=== PATIENT | female | born 1990 | race Caucasian/White ===

== ENCOUNTER 2017-06-29 08:29 | Emergency (ER) | payer BC ==
[2017-06-29] MEDS ORDERED: METHYLPREDNISOLONE PF 125MG/VIAL IVP ONE (09:03)
[2017-06-29] MEDS ORDERED: DIPHENHYDRAMINE HCL IV 50 MG/ML VIAL IVP ONE (09:03)
[2017-06-29 09:29] LABS: URINE APPEARANCE SL CLOUDY; URINE BILIRUBIN NEGATIVE (NEGATIVE); URINE BLOOD MODERATE (NEGATIVE); URINE COLOR YELLOW; URINE GLUCOSE (UA) NEGATIVE (NEGATIVE); URINE KETONE NEGATIVE (NEGATIVE); URINE LEUKOCYTE ESTERASE TRACE (NEGATIVE); URINE NITRITE NEGATIVE (NEGATIVE); URINE PROTEIN NEGATIVE (NEGATIVE); URINE UROBILINOGEN 0.2 E.U./dL (0.20 - 1.00)
[2017-06-29 09:30] LABS: BASO % 0.2 % (0-6); EOS % 0.6 % (0-6); HEMATOCRIT 41.3 % (35.0-47.0); LYMPH % 16.8 % (16-45); MEAN CELL VOLUME 86.9 fl (81-97); MEAN CORPUSCULAR HEMOGLOBIN 29.5 pg (27-33); MEAN CORPUSCULAR HGB CONC 33.9 g/dl (32-36); MEAN PLATELET VOLUME 10.3 fl (7.4-10.4); MONO % 6.4 % (0-9); PLATELET COUNT 297 K/uL (130-400); RED BLOOD COUNT 4.75 M/uL (3.80-5.40); RED CELL DISTRIBUTION WIDTH 12.8 % (11.5-14.5); WHITE BLOOD COUNT W/O DIFF 12.5 K/uL (4.2-12.2)
[2017-06-29 09:45] LABS: URINE BACTERIA 2+; URINE SQUAMOUS EPITHELIAL CELL 16 - 20 /hpf
[2017-06-29 10:05] LABS: ALB/GLOB RATIO 1.4 (1.1-1.8); ALBUMIN 4.1 g/dL (4.0-5.0); ALKALINE PHOSPHATASE 58 U/L (35-104); ALT/SGPT 9 U/L (<33); AST/SGOT 13 U/L (10.0-35.0); BLOOD UREA NITROGEN 10 mg/dL (6-20); CREATININE 0.5 mg/dL (0.5-0.9); EST GLOMERULAR FILTRATION RATE > 60 mL/min; GLUCOSE,RANDOM 86 mg/dL (74-109); TOTAL PROTEIN 7.1 g/dL (6.6-8.7)
[2017-06-29 10:37] LABS: ERYTHROCYTE SEDIMENTATION RATE 2 mm/hr (0-20)
--- NOTE | 2017-06-29 11:16 | Emergency Department Record ---
History of Present Illness - General Chief complaint: Allergic Reaction Stated complaint: HANDS SWOLLEN,HIVES Time Seen by Provider: 06/29/17 08:51 Source: Patient Mode of Arrival: Ambulatory Limitations: No limitations - History of Present Illness Initial Comments: pt awakened w swelling in her face and hands and forearms w itching. she also has a rash along the panty line that is itchy. no flory or swallowing. pt is 7 wks Complaint: Allergic reaction, Facial swelling Onset/Timin -: Week(s) Exposure: Unknown Symptoms: Itching, Rash Previous Allergy History: None - Related Data Previous Rx's Medication Instructions Recorded Cephalexin [Keflex] 500 mg PO BID #14 cap 06/29/17 Allergies Allergy/AdvReac Type Severity Reaction Status Date / Time No Known Drug Allergies Allergy Verified 06/29/17 08:42 Travel Screening - Travel/Exposure Within Last 30 Days Have you traveled within the last 30 days?: No Review of Systems Reviewed: No additional complaints except as noted below Constitutional: Reports: As per HPI. Denies: Chills, Fever, Malaise, Night sweats, Weakness, Weight change Eyes: Reports: As per HPI. Denies: Eye discharge, Eye pain, Photophobia, Vision change ENT: Reports: As per HPI. Denies: Congestion, Dental pain, Ear pain, Epistaxis , Hearing loss, Throat pain Respiratory: Reports: As per HPI. Denies: Cough, Dyspnea, Hemoptysis, Stridor, Wheezes Cardiovascular: Reports: As per HPI. Denies: Arrhythmia, Chest pain, Dyspnea on exertion, Edema, Murmurs, Orthopnea, Palpitations, Paroxysmal nocturnal dyspnea, Rheumatic Fever, Syncope Endocrine: Reports: As per HPI. Denies: Fatigue, Heat or cold intolerance, Polydipsia, Polyuria Gastrointestinal: Reports: As per HPI. Denies: Abdominal pain, Constipation, Diarrhea, Hematemesis, Hematochezia, Melena, Nausea, Vomiting Genitourinary: Reports: As per HPI. Denies: Abnormal menses, Discharge, Dyspareunia, Dysuria, Frequency, Hematuria, Incontinence, Retention, Urgency Musculoskeletal: Reports: As per HPI. Denies: Arthralgia, Back pain, Gout, Joint swelling, Myalgia, Neck pain Skin: Reports: As per HPI. Denies: Bruising, Change in color, Change in hair/ nails, Lesions, Pruritus, Rash Neurological: Reports: As per HPI. Denies: Abnormal gait, Confusion, Headache, Numbness, Paresthesias, Seizure, Tingling, Tremors, Vertigo, Weakness Psychiatric: Reports: As per HPI. Denies: Anxiety, Auditory hallucinations, Depression, Homicidal thoughts, Suicidal thoughts, Visual hallucinations Hematological/Lymphatic: Reports: As per HPI. Denies: Anemia, Blood Clots, Easy bleeding, Easy bruising, Swollen glands Past Medical History - SOCIAL HISTORY Smoking Status: Never smoker Alcohol Use: None Drug Use: None - RESPIRATORY Hx Respiratory Disorders: No - CARDIOVASCULAR Hx Cardio Disorders: No - NEURO Hx Neuro Disorders: No - GI Hx GI Disorders: No - Hx Genitourinary Disorders: Yes Hx Kidney Stones: Yes - ENDOCRINE Hx Endocrine Disorders: No - MUSCULOSKELETAL Hx Musculoskeletal Disorders: No - PSYCH Hx Psych Problems: No - HEMATOLOGY/ONCOLOGY Hx Hematology/Oncology Disorders: No Family Medical History Any Significant Family History?: No Family Hx Comment (NOT TO BE USED IN PLACE OF ITEMS BELOW): denies Physical Exam - General General Appearance: Alert, Oriented x3, Cooperative, Mild distress - Head Head exam: Normal inspection Head exam detail: Other (swelling of face, lids, lips w erythema) - Eye Eye exam: Normal appearance, PERRL, EOMI Pupils: Normal accommodation - ENT ENT exam: Normal exam, Mucous membranes moist, Normal external ear exam, Normal orophraynx Ear exam: Normal external inspection. negative: External canal tenderness Nasal Exam: Normal inspection. negative: Discharge, Sinus tenderness Mouth exam: Tongue normal, Other (swelling of lips) Teeth exam: Normal inspection. negative: Dental caries Throat exam: Normal inspection. negative: Tonsillar erythema, Tonsillar exudate - Neck Neck exam: Normal inspection, Full ROM. negative: Tenderness - Respiratory Respiratory exam: Normal lung sounds bilaterally. negative: Respiratory distress - Cardiovascular Cardiovascular Exam: Regular rate, Normal rhythm, Normal heart sounds - GI/Abdominal GI/Abdominal exam: Soft, Normal bowel sounds. negative: Tenderness - Rectal Rectal exam: Deferred - exam: Deferred - Extremities Extremities exam: Joint swelling (swelling of hands), Normal capillary refill, Tenderness. negative: Full ROM - Back Back exam: Reports: Normal inspection, Full ROM. Denies: Muscle spasm, Rash noted, Tenderness - Neurological Neurological exam: Alert, CN II-XII intact, Normal gait, Oriented X3 - Psychiatric Psychiatric exam: Normal affect, Normal mood - Skin Skin exam: Dry, Intact, Normal color, Rash, Warm Distribution of rash: Abdomen Description of rash: Confluent, Erythematous, Macular, Papular Course Vital Signs 06/29/17 06/29/17 08:36 11:02 Temperature 98.0 F 98.2 F Pulse Rate 84 Pulse Rate [ 79 Pulse Ox Probe] Respiratory 20 20 Rate Blood Pressure 123/76 Blood Pressure 100/55 [Left Arm] Pulse Ox 97 97 - Reevaluation(s) Reevaluation #1: 06/29/17 11:17 pt feels much better and swelling is going down Medical Decision Making - Lab Data Result diagrams: 06/29/17 09:20 06/29/17 09:20 Lab Results 06/29/17 06/29/17 06/29/17 Range/Units 09:20 09:20 09:20 WBC 12.5 H (4.2-12.2) K/uL RBC 4.75 (3.80-5.40) M/uL Hgb 14.0 (11.6-16.0) gm/dl Hct 41.3 (35.0-47.0) % MCV 86.9 (81-97) fl MCH 29.5 (27-33) pg MCHC 33.9 (32-36) g/dl RDW 12.8 (11.5-14.5) % Plt Count 297 (130-400) K/uL MPV 10.3 (7.4-10.4) fl Gran % 76.0 (47-80) % Lymphocytes % 16.8 (16-45) % Monocytes % 6.4 (0-9) % Eosinophils % 0.6 (0-6) % Basophils % 0.2 (0-6) % ESR 2 (0-20) mm/hr Sodium 138 (136-145) mmol/L Potassium 3.9 (3.4-4.5) mmol/L Chloride 100 (98-107) mmol/L Carbon Dioxide 24.0 (22-29) mmol/L Anion Gap 14.0 (7-16) BUN 10 (6-20) mg/dL Creatinine 0.5 (0.5-0.9) mg/dL Estimated GFR > 60 mL/min Random Glucose 86 (74-109) mg/dL Calcium 9.0 (8.6-10.0) mg/dL Total Bilirubin 0.50 (0.2-1.0) mg/dL AST 13 (10.0-35.0) U/L ALT 9 (<33) U/L Alkaline Phosphatase 58 (35-104) U/L Total Protein 7.1 (6.6-8.7) g/dL Albumin 4.1 (4.0-5.0) g/dL Globulin 3.0 (1.4-4.8) gm/dL Albumin/Globulin Ratio 1.4 (1.1-1.8) Urine Color Yellow Urine Appearance Sl cloudy Urine pH 6.0 (5.0-8.0) Ur Specific [place] 1.025 (1.002-1.030) Urine Protein Negative (NEGATIVE) Urine Glucose (UA) Negative (NEGATIVE) Urine Ketones Negative (NEGATIVE) Urine Blood Moderate (NEGATIVE) Urine Nitrite Negative (NEGATIVE) Urine Bilirubin Negative (NEGATIVE) Urine Urobilinogen 0.2 (0.20 - 1.00) E.U./dL Ur Leukocyte Esterase Trace H (NEGATIVE) Urine RBC 7 - 10 (NONE SEEN) Urine WBC 10 - 15 (0-2/hpf) U Non-Squamous Epi Cells 16 - 20 /hpf Urine Bacteria 2+ Disposition Disposition: Discharge Clinical Impression: Swelling of both hands Allergic reaction Qualifiers: Encounter type: initial encounter Qualified Code(s): T78.40XA - Allergy, unspecified, initial encounter UTI (urinary tract infection) Qualifiers: Urinary tract infection type: acute cystitis Hematuria presence: without hematuria Qualified Code(s): N30.00 - Acute cystitis without hematuria Disposition: Home, Self-Care Condition: (1) Good Instructions: General Allergic Reaction (ED), Urinary Tract Infection in (ED) Additional Instructions: follow up with credit collections analyst on saturday without fail. return sooner if worse. Prescriptions: Cephalexin [Keflex] 500 mg PO BID #14 cap Quality - Quality Measures Quality Measures: N/A - Blood Pressure Screening Does Patient Have Any of the Following: No Blood Pressure Classification: Pre-Hypertensive BP Reading Systolic Measurement: 123 Diastolic Measurement: 76 Screening for High Blood Pressure: < Pre-Hypertensive BP, F/U Documented > [ [id number]] Pre-Hypertensive Follow-up Interventions: Follow-up with rescreen every year.
== END 2017-06-29 11:37 | disposition home or self-care (01) ==
LOC: ER 08:29
DX: T78.40XA Allergy, unspecified, initial encounter (principal); R22.31 Localized swelling, mass and lump, right upper limb; R22.32 Localized swelling, mass and lump, left upper limb; O23.11 Infections of bladder in pregnancy, first trimester; N30.00 Acute cystitis without hematuria; Z3A.01 Less than 8 weeks gestation of pregnancy
CPT/HCPCS: 80053; 81001; 85025; 85651; 96374; 96375; 99284; J1200; J2930